=== PATIENT | female | born 1965 | race Caucasian/White ===

== ENCOUNTER 2022-01-19 20:31 | Emergency (ER) | payer OTHER, BC ==
[2022-01-19] MEDS ORDERED: Sodium Chloride 0.9% 1,000 ML IV ONE ×2 (20:34→21:47)
[2022-01-19] MEDS ORDERED: Ketorolac 30 MG/ML SDV IVPUSH ONE (21:08)
[2022-01-19] MEDS ORDERED: Diazepam 2 MG Tab PO STA (21:09)
[2022-01-19 21:20] LABS: BLOOD UREA NITROGEN,BUN 24 mg/dL (7.0-18.0); CARBON DIOXIDE,CO2 21.5 mmol/L (21.0-32.0); CHLORIDE,CL 103 mmol/L (98-107); GLUCOSE RANDOM 136 mg/dL (74-106); POTASSIUM,K 3.3 mmol/L (3.5-5.1); SODIUM,NA 139 mmol/L (136-145)
[2022-01-19] MEDS ORDERED: traMADol 50 MG Tab PO STA (22:27)
== END 2022-01-19 22:59 | disposition home or self-care (01) ==
LOC: MW.ED 20:31
DX: T67.1XXA Heat syncope, initial encounter (principal); R94.6 Abnormal results of thyroid function studies
CPT/HCPCS: 36415; 72100; 72170; 80053; 80307; 83735; 84439; 84443; 84481; 84484; 84703; 85025; 93005; 96361; 96374; 99285; A9270; J1885; J7030